=== PATIENT | male | born 1975 ===

== ENCOUNTER 2016-07-29 20:06 | Emergency (ER) | payer BC ==
[2016-07-29] MEDS ORDERED: BAND-AID NON-S1 EAC1 (21:18)
[2016-07-29] MEDS ORDERED: KEFLEX500 M4 PO (22:02)
== END 2016-07-29 22:25 ==
LOC: EDMED 20:06
PROC: 0HQNXZZ Repair Left Foot Skin, External Approach (ICD-10-PCS; principal; 2016-07-29)
DX: S91.312A Laceration without foreign body, left foot, initial encounter (principal); Z23 Encounter for immunization; W45.8XXA Other foreign body or object entering through skin, initial encounter; Y92.019 Unspecified place in single-family (private) house as the place of occurrence of the external cause